=== PATIENT | female | born 1960 | race Caucasian/White ===

== ENCOUNTER 2024-09-04 17:22 | Emergency (ER) | payer OTHER, SELFPAY ==
[2024-09-04 17:24] VITALS: BP 142/112
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
[2024-09-04 19:15] LABS: Urine Albumin 3+ (Neg - Trace); Urine Bilirubin Negative (Negative); Urine Character Clear (Clear); Urine Color Yellow; Urine Glucose Negative (Negative); Urine Ketone Negative (Negative); Urine Leukocyte 1+ (Negative); Urine Nitrite Negative (Negative); Urine Occult Blood Negative (Negative); Urine Specific Gravity 1.025 (<1.030); Urine Urobilinogen Negative (Neg - 1+)
[2024-09-04 19:16] LABS: % Basophils 0.5 % (0-2); % Eosinophils 1.3 % (0-6); % Immature Granulocytes 0.5 % (0-0.5); % Lymphocytes 28.7 % (20.5-51.1); % Monocytes 5.5 % (1.7-9.3); % Neutrophils 63.5 % (42.2-75.2); Absolute Basophils 0.1 10^3/uL (0-0.2); Absolute Eosinophils 0.1 10^3/uL (0-0.7); Absolute Immature Granulocytes 0.1 10^3/uL (0-0.05); Absolute Lymphocytes 3.2 10^3/uL (1.2-3.4); Absolute Monocytes 0.6 10^3/uL (0.1-0.6); Hematocrit 35.1 % (37.0-47.0); Hemoglobin 12.2 g/dL (12.0-16.0); Mean Corp Hgb Conc. 34.8 g/dL (33.0-37.0); Mean Corpuscular Hgb 32.8 pg (27.0-31.0); Mean Corpuscular Volume 94.4 fL (81.0-99.0); Mean Platelet Volume 10.9 fL (7.4-10.4); Nucleated Red Blood Cells % 0 %; Platelet Count 313 10^3/uL (130-400); Red Blood Cell Count 3.72 10^6/uL (4.20-5.40); Red Cell Dist. Width 12.8 % (11.5-14.5)
[2024-09-04 19:30] LABS: COVID-19 Antigen Negative (Negative)
[2024-09-04 19:32] LABS: Urine Squamous Cell >30 /LPF (Few)
[2024-09-04 19:33] LABS: Urine Red Blood Cell None Seen /HPF (0-2)
[2024-09-04 19:35] LABS: Amphetamines Positive (Negative); Barbiturates Negative (Negative); Benzodiazepines Negative (Negative); Buprenorphine Negative (Negative); Cocaine Negative (Negative); Marijuana Negative (Negative); Methadone Negative (Negative); Methamphetamines Positive (Negative); Opiates Negative (Negative); Phencyclidine Negative (Negative); Tricyclic Antidepressants Negative (Negative)
[2024-09-04 19:38] LABS: ALT (SGPT) 19 U/L (0-35); AST (SGOT) 19 U/L (14-36); Acetaminophen < 10 ug/ml (10-30); Albumin 4.3 g/dl (3.5-5.0); Alkaline Phosphatase 66 U/L (38-126); Blood Urea Nitrogen 44 mg/dl (7-17); Carbon Dioxide 23 mmol/L (22-30); Chloride 111 mmol/L (98-107); Glucose 222 mg/dl (70-99); Potassium 4.7 mmol/L (3.5-5.1); Salicylate < 1.0 mg/dl (2.0-20.0); Sodium 141 mmol/L (135-145); Total Bilirubin 0.6 mg/dl (0.2-1.3); eGFR 50.55
[2024-09-04 19:40] VITALS: BMI 26.7
[2024-09-04 19:44] LABS: Alcohol None Detected
[2024-09-04 20:02] LABS: Fentanyl, Urine Negative (Negative)
[2024-09-04] MEDS: ATIVAN 2 MG PO (20:07)
[2024-09-04 20:13] VITALS: BMI 28.1
[2024-09-04 23:47] VITALS: BP 133/84
[2024-09-05] MEDS: TYLENOL 650 MG PO (08:06)
[2024-09-05 08:15] VITALS: BP 154/90
[2024-09-05] MEDS: ATIVAN 2 MG PO (08:24)
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
== END 2024-09-05 11:29 ==
LOC: EMR 17:22
PROVIDERS: Nurse Practitioner; EMERGENCY PHYSICIAN Emergency Medicine
DX: R45.1 Restlessness and agitation (principal); F19.90 Other psychoactive substance use, unspecified, uncomplicated; Z11.52 Encounter for screening for COVID-19
CPT/HCPCS: 99283; 80053; 80143; 80179; 80306; 80307; 81003; 81015; 82077; 85025; 87086; 87502; 87811